=== PATIENT | male | born 1995 | race Caucasian/White ===

== ENCOUNTER → 2023-10-15 | Outpatient (CLI) | payer OTHER ==
[2023-10-15 12:06] LABS: HEMOGLOBIN 16.6 g/dl (13.5-17.5); MEAN CORPUSCULAR HEMOGLOBIN 30.1 pg (27.0-33.0); MEAN CORPUSCULAR HGB CONC 35.3 g/dl (32.0-36.5); MEAN CORPUSCULAR VOLUME 85.1 fl (80.0-96.0); PLATELET COUNT, AUTOMATED 188 10^3/uL (150-450); RED BLOOD COUNT 5.52 10^6/uL (4.30-6.10); WHITE BLOOD COUNT 6.1 10^3/uL (4.0-10.0)
[2023-10-15 12:27] LABS: ATYPICAL LYMPH 17 % (0-5); EOSINOPHILS 5 % (0-3); LYMPHOCYTES 19 % (16-44); MONOCYTES 18 % (0-5); NEUTROPHILS 39 % (28-66); PLATELET ESTIMATE NORMAL (NORMAL)
[2023-10-15 12:31] LABS: ALBUMIN 3.8 G/DL (3.2-5.2); ALKALINE PHOSPHATASE 94 U/L (46-116); ALT/SGPT 63 U/L (7.0-40); AST/SGOT 48 U/L (<34); BILIRUBIN,TOTAL 1.3 MG/DL (0.3-1.2); BLOOD UREA NITROGEN 15 MG/DL (9-23); CALCIUM LEVEL 9.6 MG/DL (8.5-10.1); CARBON DIOXIDE LEVEL 30 MMOL/L (20-31); CHLORIDE LEVEL 104 MMOL/L (98-107); CREATININE FOR GFR 0.93 MG/DL (0.70-1.30); GLOMERULAR FILTRATION RATE > 60.0 (>60); GLUCOSE, FASTING 84 MG/DL (60-100); POTASSIUM SERUM 4.6 MMOL/L (3.5-5.1); SODIUM LEVEL 139 MMOL/L (136-145); TOTAL PROTEIN 7.6 G/DL (5.7-8.2)
[2023-10-16 16:08] LABS: EBV VIRAL CAPSID AG IgM <36.0 U/mL (0.0-35.9)
== END ==
LOC: M LAB 10:05
PROVIDERS: ATTEND Physician Assistant
DX: R50.9 Fever, unspecified (principal); B34.9 Viral infection, unspecified

== ENCOUNTER → 2024-02-21 | Outpatient (CLI) | payer OTHER ==
[2024-02-21 14:24] LABS: BASO # 0.1 10^3/uL (0.0-0.2); BASO % 0.7 % (0.0-1.0); EOS # 0.4 10^3/uL (0.0-0.5); EOS % 5.5 % (0.0-3.0); HEMATOCRIT 46.5 % (42.0-52.0); HEMOGLOBIN 16.2 g/dl (13.5-17.5); LYMPH # 2.7 10^3/uL (1.5-5.0); LYMPH % 40.3 % (24.0-44.0); MEAN CORPUSCULAR HEMOGLOBIN 29.7 pg (27.0-33.0); MEAN CORPUSCULAR HGB CONC 34.8 g/dl (32.0-36.5); MEAN CORPUSCULAR VOLUME 85.3 fl (80.0-96.0); MONO # 0.6 10^3/uL (0.0-0.8); MONO % 8.8 % (2.0-8.0); NEUTROPHILS % 44.3 % (36.0-66.0); PLATELET COUNT, AUTOMATED 263 10^3/uL (150-450); RED BLOOD COUNT 5.45 10^6/uL (4.30-6.10); WHITE BLOOD COUNT 6.7 10^3/uL (4.0-10.0)
[2024-02-21 14:32] LABS: ALBUMIN 4.3 G/DL (3.2-5.2); ALKALINE PHOSPHATASE 89 U/L (46-116); ALT/SGPT 38 U/L (7.0-40); AST/SGOT 28 U/L (<34); BLOOD UREA NITROGEN 17 MG/DL (9-23); CALCIUM LEVEL 9.7 MG/DL (8.5-10.1); CARBON DIOXIDE LEVEL 31 MMOL/L (20-31); CHLORIDE LEVEL 104 MMOL/L (98-107); CHOLESTEROL LEVEL 237 MG/DL (<200); CHOLESTEROL RISK RATIO 4.48 (<5); CREATININE FOR GFR 0.89 MG/DL (0.70-1.30); FREE T4 1.14 NG/DL (0.89-1.76); GLOMERULAR FILTRATION RATE > 60.0 (>60); GLUCOSE, FASTING 89 MG/DL (60-100); HDL CHOLESTEROL 52.9 MG/DL (>40); LDL CHOLESTEROL 143.7 MG/DL (<100); NON-HDL-C 184.1 MG/DL; POTASSIUM SERUM 4.8 MMOL/L (3.5-5.1); SODIUM LEVEL 138 MMOL/L (136-145); THYROID STIMULATING HORMONE 2.501 uIU/ML (0.55-4.78); TOTAL PROTEIN 7.8 G/DL (5.7-8.2); TRIGLYCERIDES LEVEL 202 MG/DL (<150)
== END ==
LOC: M PLALAB 10:01
PROVIDERS: ATTEND Nurse Practitioner Family
DX: F41.1 Generalized anxiety disorder (principal); Z13.220 Encounter for screening for lipoid disorders; R53.83 Other fatigue